=== PATIENT | male | born 1955 | race Caucasian/White ===

== ENCOUNTER 2017-12-29 22:29 | Inpatient (IN) | payer BC, SELFPAY ==
[2017-12-29 23:06] VITALS: BP 137/82; PULSE 60; RESP 18; TEMP 37; O2SAT 100
[2017-12-30] VITALS (18 sets, daily range): BP systolic 110–142; BP diastolic 63–90; PULSE 60–88; RESP 15–18; TEMP 36.1–37.1; O2SAT 89–100; BMI 29.6
--- NOTE | 2017-12-30 | DI.RAD.S_ITS ---
PROCEDURE: XR CHOLANGIOGRAM OPERATIVE INDICATIONS: LAP MANOHAR COMPARISON: [facility], US, US ABDOMEN COMPLETE, 12/30/2017, 2:29. FINDINGS: Biliary ducts: The surgeon injected contrast into the biliary ducts after cannulation of the cystic duct stump. Visualized intra- and extrahepatic bile ducts are normal in caliber, without strictures. No intraluminal filling defects to suggest retained ductal stones or sludge. No evidence for iatrogenic ductal injury. Duodenum: Contrast flows promptly through the sphincter of Oddi into the duodenum, which appears normal in caliber. IMPRESSION: Normal intraoperative cholangiogram. Dictated by: Jordon Apodaca M.D. on 12/30/2017 at 20:56 Approved by: Jordon Apodaca M.D. on 12/30/2017 at 20:57
--- NOTE | 2017-12-30 | PATH_ITS ---
[facility] Accession Number: [id number] . 01 Material submitted: . GALLBLADDER . 02 Diagnosis: Gallbladder: Cholelithiasis with associated acute and chronic cholecystitis. I/01/03/2018 . 02 Electronically signed: . Valentino Dumont MD, Pathologist NPI- [id number] . 01 Gross description: . Received in formalin, labeled gallbladder, is an opened gallbladder (length-9.4 cm, diameter-3.2 cm) with haddad-purple smooth and shiny serosa and a patent cystic duct. No lymph nodes are identified. The lumen contains multiple arriaga yellow solid firm round calculi (6.0 x 4.5 x 1.4 cm in aggregate, ranging less than 0.1 cm - 0.4 cm) mixed with brown paste-like material. The mucosa is brown smooth and flat. The wall is up to 0.4 cm thick. No nodules, masses or lesions are identified. Section code: (A1) cystic duct resection margin and two serial sections from the body; (A2) two longitudinal sections from the fundus. ([id number]) /[facility] . 02 Pathologist provided ICD-10: K80.66 . 02 CPT . 380333 Performed at: 01 [facility] [address], [place], [place] [id number] MD Tate Blevins MD Phone: [phone] Performed at: 02 [facility] [address] [place], [place] [id number] MD Rashad Aden MD Phone: [phone]
[2017-12-30] MEDS: SODIUM CHLORIDE 0.9% 1,000 ML 150 ML IV (01:00)
[2017-12-30 01:02] LABS: Add Manual Diff / Slide Review NO; Basophils Percent Auto 0.3 % (0-2); Eosinophils Percent Auto 0.2 % (2-4); Hematocrit 45.2 % (41-53); Hemoglobin 15.7 g/dL (13.5-17.5); Lymphocytes Percent Auto 8.8 % (25-40); Mean Corpuscular HGB Conc 34.7 % (30-36); Mean Corpuscular Hemoglobin 29.3 PG (26-34); Mean Corpuscular Volume 84.4 fL (80-100); Monocytes Percent Auto 5.7 % (3-14); Neutrophils Absolute Auto 4900 /uL (3000-5900); Platelet Count 164 X10^3/uL (150-400); Red Blood Cell Count 5.36 X10^6/uL (4.5-5.9); White Blood Cell Count 5.8 X10^3/uL (4.5-11.0)
[2017-12-30 01:05] LABS: Alanine Aminotransferase 408 IU/L (21-72); Albumin 4.4 g/dL (3.5-5.0); Albumin Globulin Ratio 1.5 (1.0-2.8); Alkaline Phosphatase 84 U/L (38-126); Aspartate Aminotransferase 448 IU/L (17-59); Blood Urea Nitrogen 14 mg/dL (9-20); Calcium 9.5 mg/dL (8.4-10.2); Carbon Dioxide 28 mmol/L (22-32); Chloride 105 mmol/L (98-107); Estimated Glomerular Filt Rate > 60.0 mL/min (>60); Globulin 2.9 g/dL (1.7-4.1); Glucose 136 mg/dL (80-110); HEMOLYSIS < 15 (0-50); Lipase 71 U/L (23-300); Sodium 143 mmol/L (137-145); Total Protein 7.3 g/dL (6.3-8.2)
[2017-12-30 01:37] LABS: INR 1.2 (0.9-1.3); Prothrombin Time 12.7 SECONDS (10.1-12.7)
[2017-12-30 01:41] LABS: Acetaminophen < 10 ug/mL (10-30)
--- NOTE | 2017-12-30 01:42 | DI.US.S_ITS ---
PROCEDURE: US ABDOMEN COMPLETE INDICATIONS: severe epigastric pain, elevated Bili/liver enzymes TECHNIQUE: Real-time scanning was performed of the abdominal and retroperitoneal organs, with image documentation. COMPARISON: None. FINDINGS: Liver: Liver is diffusely increased in echogenicity. No focal hepatic abnormalities identified. Normal hepatic size. Gallbladder: No gallstones identified. Normal gallbladder wall. No pericholecystic fluid. Negative sonographic Quigley sign. Biliary ducts: Intrahepatic bile ducts are non-dilated. Extrahepatic bile duct caliber measures 7 mm. Normal is 6-7 mm or less in diameter, or 10 mm or less post-cholecystectomy. Pancreas: Visualized portions of the pancreas are sonographically normal. Spleen: Spleen is normal in size and homogeneous in echotexture. Kidneys: Kidneys are normal in size and echotexture. Right kidney measures 12.4 cm long; left kidney measures 12.2 cm long. No hydronephrosis or nephrolithiasis. No solid masses. Aorta: Visualized aorta is normal in caliber at less than 3 cm. Iliacs: Not visualized. IVC: Not visualized. Miscellaneous: No free abdominal fluid. Impression: Increased hepatic echogenicity noted possibly related to hepatic steatosis but other sources of hepatocellular disease cannot be excluded. Recommend clinical correlation. Dictated by: Benigno LONG Interpreted: Jag Blackwell MD on 12/30/2017 at 7:53 Approved by: Jag Blackwell M.D. on 12/30/2017 at 14:50
--- NOTE | 2017-12-30 02:40 | ED_ITS ---
HPI - Abdominal Pain General Chief Complaint: Abdominal Pain Stated Complaint: abd px Time Seen by Provider: 12/30/17 01:24 Source: patient and family Mode of arrival: ambulatory Limitations: no limitations History of Present Illness HPI narrative: 62M nonsmoker presents with severe epigastric pain with nausea over the course of the day. This is his 2nd episode in the past 2 weeks and seems to have been precipitated by eating. He denies any radiation of the pain but associated with nausea. He has had no fever, chills or jaundice. He had an episode a few years ago at his primary care provider thought it might have been from a gallstone but took no further action. He last ate solids at about 5 :00 p.m. and had water at about 8:00 p.m.. He does not take blood thinners and denies any abdominal surgeries. 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 MD complaint: abdominal pain Onset (ago): hour(s) Pain Consistency: constant Location: RUQ and epigastric Severity: severe Quality: cramping and aching Radiation: none Migration to: no migration Relieving factors: nothing Exacerbating factors: nothing Associated symptoms: nausea Related Data Home Medications Medication Instructions Recorded Confirmed potassium chloride PO 12/14/17 12/14/17 vitamin B complex PO 12/14/17 12/14/17 Previous Rx's Medication Instructions Recorded omeprazole 40 mg capsule,delayed 40 mg PO DAILY 42 Days #90 cap 12/14/17 release Allergies Allergy/AdvReac Type Severity Reaction Status Date / Time No Known Drug Allergies Allergy Verified 12/14/17 14:36 Review of Systems Review of Systems All systems reviewed & are unremarkable except as noted in HPI and below Constitutional Denies chills, Denies fever(s), Denies lethargy and Denies weakness Eyes Denies change in vision, Denies eye discharge, Denies irritation and Denies loss of vision ENT Ears, Nose, Mouth, and Throat: Denies change in voice, Denies neck pain and Denies sore throat Cardiovascular Denies chest pain, Denies irregular heart rhythm, Denies lightheadedness, Denies palpitations, Denies dyspnea, Denies dyspnea on exertion and Denies orthopnea Respiratory Denies cough, Denies dyspnea, Denies dyspnea on exertion and Denies wheezing Gastrointestinal Gastrointestinal: Reports abdominal pain, Denies change in bowel habits, Denies diarrhea, Denies nausea and Denies vomiting Genitourinary Denies hematuria, Denies flank pain, Denies urinary incontinence and Denies urinary urgency Musculoskeletal Denies neck pain Integumentary/Breasts Denies pruritus, Denies erythema, Denies rash and Denies wounds Neurologic Denies confusion, Denies loss of vision and Denies weakness Psychiatric Denies anxiety, Denies confusion, Denies depression, Denies homicidal ideation and Denies suicidal ideation Endocrine Denies palpitations Hematologic/Lymphatic Denies easy bruising Allergic/Immunologic Denies wheezing [facility], [facility] Social History Smoking Status: Never smoker Exam Narrative Exam Narrative: 62-year-old male, obviously uncomfortable Initial Vital Signs Initial Vital Signs: Vital Signs Temperature 98.6 F 12/29/17 23:06 Pulse Rate 60 12/29/17 23:06 Respiratory Rate 18 12/29/17 23:06 Blood Pressure 137/82 12/29/17 23:06 Pulse Oximetry 100 12/29/17 23:06 Const General: cooperative and well developed Nutritional Appearance: well nourished Orientation: alert, awake, oriented x3 and not confused [facility] Head: normocephalic and atraumatic Ears: external ears normal and TM's normal bilaterally Nose: external nose normal and No nasal discharge Face and sinus: sinuses nontender, face symmetric, no sinus tenderness and No dry mucous membranes Mouth: oral mucosae normal and moist mucous membranes Teeth and gingiva: dentition normal Throat: tonsils normal and uvula midline Eyes General: appearance normal, both eyes and all related structures Eyelids: eyelids normal Conjunctivae: conjunctivae normal Sclera: sclerae normal Pupils: PERRL EOM: EOM intact bilaterally Neck Neck: normal visual inspection, trachea midline, No lymphadenopathy, No midline deformity and No JVD Lymphatic: No lymphedema Chest Chest: normal inspection of the chest Resp Effort & Inspection: normal respiratory effort, able to speak in complete sentences, no respiratory distress and no use of accessory muscles Auscultation: clear to auscultation bilaterally, no rales, no rhonchi and no wheezes Cardio Rate: regular rate Rhythm: regular rhythm Heart Sounds: no click, no gallops, no murmurs and no rubs Pulses: normal peripheral pulses GI Inspection: non-distended Palpation: soft, no hepatosplenomegaly, No guarding, No pulsatile mass and tender (In epigastrium and right upper quadrant) Auscultation: normal bowel sounds Back/Spine/Pelvis Back: No CVA tenderness Cervical Spine: cervical ROM normal and No pain with cervical ROM Thoracic/Lumbar Spine: thoracic and lumbar spine normal to inspection Skin General: no rashes or lesions noted, No jaundice and No petechiae Neuro General: alert, oriented x3, gait normal and no focal motor deficits Speech: speech normal Extrem General: full ROM, no clubbing, cyanosis or edema, no pedal edema and no calf tenderness Psych Appearance: well kempt Mental Status: mental status grossly normal Attitude: cooperative Thought Content: normal and suicidality Judgment: judgment good Course Decision to Admit Date: 12/30/17 Decision to Admit time: 01:39 Orders Ordered: ED Orders 12/30/17 00:23 Acetaminophen Stat Complete Blood Count AUTO DIFF Stat Comprehensive Metabolic Panel Stat Lipase Stat Prothrombin Time INR Stat 12/30/17 01:42 US abdomen complete Stat Sodium Chloride (Normal Saline 0.9%) 1,000 mls @ 150 mls/hr IV CONT FREDDIE Last Admin: 12/30/17 01:00 Dose: 150 mls/hr Discontinued Medications Hydromorphone HCl (Dilaudid) 1 mg IV NOW ONE Stop: 12/30/17 03:06 Cefotetan Disodium/Dextrose (Cefotan) 2 gm in 50 mls @ 100 mls/hr IV NOW ONE Stop: 12/30/17 03:16 Last Admin: 12/30/17 03:29 Dose: 100 mls/hr Consultations Consultation #1: Mo vaca, happy to accept patient onto his service. Recommends antibiotics, IV fluids Vital Signs - 8 hr 12/29/17 23:06 Temperature 98.6 F Pulse Rate 60 Respiratory Rate 18 Blood Pressure 137/82 Pulse Oximetry 100 MDM - Abdominal Pain Lab Data Result diagrams: 12/30/17 00:23 12/30/17 00:23 Lab Results 12/30/17 12/30/17 12/30/17 Range/Units 00:23 00:23 00:23 WBC 5.8 (4.5-11.0) X10^3/uL RBC 5.36 (4.5-5.9) X10^6/uL Hgb 15.7 (13.5-17.5) g/dL Hct 45.2 (41-53) % MCV 84.4 (80-100) fL MCH 29.3 (26-34) PG MCHC 34.7 (30-36) % RDW 14.0 (11.6-14.8) % Plt Count 164 (150-400) X10^3/uL Neut % (Auto) 85.0 H (50-75) % Lymph % (Auto) 8.8 L (25-40) % [place] % (Auto) 5.7 (3-14) % Eos % (Auto) 0.2 L (2-4) % Baso % (Auto) 0.3 (0-2) % Neut # (Auto) 4900 (6797-3698) /uL PT 12.7 (10.1-12.7) SECONDS INR 1.2 (0.9-1.3) Sodium 143 (137-145) mmol/L Potassium 4.0 (3.4-5.1) mmol/L Chloride 105 (98-107) mmol/L Carbon Dioxide 28 (22-32) mmol/L BUN 14 (9-20) mg/dL Creatinine 1.00 (0.66-1.25) mg/dL Estimated GFR > 60.0 (>60) mL/min BUN/Creatinine Ratio 14.0 (6-22) Glucose 136 H (80-110) mg/dL Calcium 9.5 (8.4-10.2) mg/dL Total Bilirubin 4.0 H (0.2-1.3) mg/dL AST 448 H (17-59) IU/L ALT 408 H (21-72) IU/L Alkaline Phosphatase 84 (38-126) U/L Total Protein 7.3 (6.3-8.2) g/dL Albumin 4.4 (3.5-5.0) g/dL Globulin 2.9 (1.7-4.1) g/dL Albumin/Globulin Ratio 1.5 (1.0-2.8) Lipase 71 (23-300) U/L Acetaminophen (10-30) ug/mL 12/30/17 Range/Units 00:23 WBC (4.5-11.0) X10^3/uL RBC (4.5-5.9) X10^6/uL Hgb (13.5-17.5) g/dL Hct (41-53) % MCV (80-100) fL MCH (26-34) PG MCHC (30-36) % RDW (11.6-14.8) % Plt Count (150-400) X10^3/uL Neut % (Auto) (50-75) % Lymph % (Auto) (25-40) % [place] % (Auto) (3-14) % Eos % (Auto) (2-4) % Baso % (Auto) (0-2) % Neut # (Auto) (6189-8602) /uL PT (10.1-12.7) SECONDS INR (0.9-1.3) Sodium (137-145) mmol/L Potassium (3.4-5.1) mmol/L Chloride (98-107) mmol/L Carbon Dioxide (22-32) mmol/L BUN (9-20) mg/dL Creatinine (0.66-1.25) mg/dL Estimated GFR (>60) mL/min BUN/Creatinine Ratio (6-22) Glucose (80-110) mg/dL Calcium (8.4-10.2) mg/dL Total Bilirubin (0.2-1.3) mg/dL AST (17-59) IU/L ALT (21-72) IU/L Alkaline Phosphatase (38-126) U/L Total Protein (6.3-8.2) g/dL Albumin (3.5-5.0) g/dL Globulin (1.7-4.1) g/dL Albumin/Globulin Ratio (1.0-2.8) Lipase (23-300) U/L Acetaminophen < 10 L (10-30) ug/mL Imaging Data US - abdomen: Radiologist's impression: Most compatible with acute cholecystitis with multiple gallstones, gallbladder sludge. Abnormally thickened, edematous gallbladder wall and positive sonographic Quigley sign. Normal common bile duct for a chest 7 mm. No intrahepatic biliary duct dilatation Discharge Plan Departure Patient Disposition: Admitted As Inpatient Clinical Impression: Acute calculous cholecystitis Admit Date/Time: 12/30/17 03:00 Admit Provider: Danielito Hassan
[2017-12-30] MEDS: HYDROMORPHONE 1 MG INJ IV (03:05)
[2017-12-30] MEDS: CEFOTETAN 2 GM/50 ML PIGGYBACK IV ×2 (03:29→19:24)
[2017-12-30] MEDS: LACTATED RINGERS 1,000 ML 150 ML IV ×2 (03:48→10:54)
[2017-12-30] MEDS: HYDROMORPHONE PCA 6 MG/30 ML PCA.VIAL IV ×2 (06:38→15:38)
[2017-12-30 07:14] LABS: Add Manual Diff / Slide Review NO; Basophils Percent Auto 0.2 % (0-2); Eosinophils Percent Auto 0.3 % (2-4); Hemoglobin 15.1 g/dL (13.5-17.5); Lymphocytes Percent Auto 19.1 % (25-40); Mean Corpuscular HGB Conc 34.3 % (30-36); Mean Corpuscular Volume 84.3 fL (80-100); Monocytes Percent Auto 7.5 % (3-14); Neutrophils Absolute Auto 4800 /uL (3000-5900); Neutrophils Percent Auto 72.9 % (50-75); Platelet Count 165 X10^3/uL (150-400); Red Blood Cell Count 5.21 X10^6/uL (4.5-5.9); Red Cell Distribution Width 14.1 % (11.6-14.8); White Blood Cell Count 6.6 X10^3/uL (4.5-11.0)
[2017-12-30 07:29] LABS: Alanine Aminotransferase 380 IU/L (21-72); Albumin Globulin Ratio 1.5 (1.0-2.8); Alkaline Phosphatase 75 U/L (38-126); Aspartate Aminotransferase 298 IU/L (17-59); Bilirubin Total 1.5 mg/dL (0.2-1.3); Blood Urea Nitrogen 12 mg/dL (9-20); Carbon Dioxide 27 mmol/L (22-32); Chloride 106 mmol/L (98-107); Estimated Glomerular Filt Rate > 60.0 mL/min (>60); Globulin 2.6 g/dL (1.7-4.1); Glucose 103 mg/dL (80-110); HEMOLYSIS < 15 (0-50); Sodium 144 mmol/L (137-145); Total Protein 6.6 g/dL (6.3-8.2)
--- NOTE | 2017-12-30 12:04 | PC.NURSE ---
Day Shift- Pt A&OX4, able to make needs known. NPO awaiting surgery today. Dr. Hassan in to see pt at 0750. IVF infusing well to left AC PIV, CLINICAL PRODUCT MANAGER Dilaudid in place, pt states has minimal to no pain to abd. Abd non tender, denies nausea. States feeling slightly anxious regarding surgery today, support provided. No other voiced concerns.
--- NOTE | 2017-12-30 14:07 | P.HP_ITS ---
History of Present Illness Date Patient Seen: 12/30/17 Time Patient Seen: 14:01 Chief complaint: abd px Narrative: Patient is a gentleman who is been having intermittent occasional pain in his right upper quadrant. Last night it was quite severe he came to emergency room and was found to have gallstones. He has actually seen a doctor about this when he has had it but he has been treated for reflux and a few other problems and no one really ever did an ultrasound of his gallbladder. This episode was the most severe of them all. No history of jaundice. Patient History Family & Social History Family History: Reviewed 12/30/17 by Danielito Hassan MD Social History: household members none Prior Living Arrangements Apartment/Condo Safety & Behavioral: Feels Safe in Current Yes Environment Been Physically Hurt or No Threatened By a Person Suicidal Ideation Description None Suicide Plan Description No Plan Tobacco & Substance use: Smoking Status Never smoker alcohol intake former Substance Use Type marijuana Meds Home Medications Medication Instructions Recorded Confirmed Type omeprazole 40 mg capsule,delayed 40 mg PO DAILY 42 Days #90 cap 12/14/17 Rx release potassium chloride PO DAILY 12/14/17 12/14/17 History vitamin B complex PO 12/14/17 12/14/17 History Allergies Allergy/AdvReac Type Severity Reaction Status Date / Time No Known Drug Allergies Allergy Verified 12/14/17 14:36 Review of Systems Review of Systems Patient wears glasses. Denies double vision pain is eyes earaches or sore throat. No cough cold or asthma. No problems swallowing. No tooth aches. No hearing difficulties. No chest pain. He was recently placed on omeprazole because the right upper quadrant pain but it had no affect. He was not having heartburn. Patient denies hematemesis black or bloody bowel movements. Last colonoscopy 10 years ago.(advised he probably should have a screening exam repeated.) Patient does not normally get up at night to pee unless he has not urinated before going to bed. He has no blood in his urine or kidney stones in the past. No seizures or blackouts. No anxiety or depression. No problems with this thyroid pancreas he is aware of. Exam Vital Signs (past 8 hours): - 12/30/17 07:45 Temperature 98.1 F Pulse Rate 76 Respiratory Rate 16 Blood Pressure 142/79 H Pulse Oximetry 97 Oxygen Delivery Method Room Air Oxygen Flow Rate 0 Narrative Exam Narrative: Co operative heavily bearded gentleman in no apparent distress. His eyes are nonicteric. Pupils equal round reactive to light. Conjunctivae are pink. Oral mucosa is dry no open lesions teeth are intact. Nasal septum is midline. No polyps. No nodes in the neck or supraclavicular areas. Trachea is midline mobile. Thyroid is not enlarged. There are no masses in neck or thyroid. Lungs are clear to auscultation without rales or rhonchi. Heart regular rate and rhythm without murmur or gallop. No heave surgical services manager thrill. Lungs percuss equally bilaterally. Patient's abdomen is soft nontender at this time. He may have a very tiny umbilical defect difficult to tell. Is not tender. No enlargement of the liver spleen is apparent. He is alert and oriented x3. Speech rate content are appropriate. Affect is appropriate. Objective Labs Result Diagrams: 12/30/17 07:00 12/30/17 07:00 Labs: Laboratory Results - last 24 hr 12/30/17 12/30/17 12/30/17 00:23 00:23 00:23 WBC 5.8 RBC 5.36 Hgb 15.7 Hct 45.2 MCV 84.4 MCH 29.3 MCHC 34.7 RDW 14.0 Plt Count 164 Neut % (Auto) 85.0 H Lymph % (Auto) 8.8 L [place] % (Auto) 5.7 Eos % (Auto) 0.2 L Baso % (Auto) 0.3 Neut # (Auto) 4900 PT 12.7 INR 1.2 Sodium 143 Potassium 4.0 Chloride 105 Carbon Dioxide 28 BUN 14 Creatinine 1.00 Estimated GFR > 60.0 BUN/Creatinine Ratio 14.0 Glucose 136 H Calcium 9.5 Total Bilirubin 4.0 H AST 448 H ALT 408 H Alkaline Phosphatase 84 Total Protein 7.3 Albumin 4.4 Globulin 2.9 Albumin/Globulin Ratio 1.5 Lipase 71 Acetaminophen 12/30/17 12/30/17 12/30/17 00:23 07:00 07:00 WBC 6.6 RBC 5.21 Hgb 15.1 Hct 44.0 MCV 84.3 MCH 29.0 MCHC 34.3 RDW 14.1 Plt Count 165 Neut % (Auto) 72.9 Lymph % (Auto) 19.1 L [place] % (Auto) 7.5 Eos % (Auto) 0.3 L Baso % (Auto) 0.2 Neut # (Auto) 4800 PT INR Sodium 144 Potassium 4.0 Chloride 106 Carbon Dioxide 27 BUN 12 Creatinine 1.00 Estimated GFR > 60.0 BUN/Creatinine Ratio 12.0 Glucose 103 Calcium 9.0 Total Bilirubin 1.5 H AST 298 H ALT 380 H Alkaline Phosphatase 75 Total Protein 6.6 Albumin 4.0 Globulin 2.6 Albumin/Globulin Ratio 1.5 Lipase Acetaminophen < 10 L Assessment & Plan Plan: Assessment/Plan Narrative: Patient is a gentleman with the ultrasound showing gallstones but no dilated ducts. His bilirubin was elevated but is come down to near normal overnight. Will proceed to the operating room to remove his gallbladder injected I into the ducts if possible. Risks of bleeding, infection, hernia, injury to internal organs or ducts, bile leakage all discussed with the patient. He appears to understand and wishes to proceed. I talked to him about postoperative ERCP should he have a stones doctor be instructed worse or he developed a bile leak.
--- NOTE | 2017-12-30 14:07 | PM.PREOP ---
Pre-operative Note Interval Note Pre-op Check: Yes History & Physical exam performed today by Physician Changes: No
--- NOTE | 2017-12-30 17:16 | PC.NURSE ---
Kanika shift note: Patient awake and alert, pain controlled adequately with SWITCHING CLERK Dilaudid. Up ambulating in room and voiding. Abdomen soft, non tender, non distended, active BS. Florian RN at bedside preparing patient for Pre OP. Patient NPO for 23 hours.
[2017-12-30] MEDS: LACTATED RINGERS 1,000 ML 42 ML IV (18:41)
[2017-12-30] MEDS: BUPIVACAINE 0.5% (PF) VIAL 30 ML INJ (19:42)
[2017-12-30] MEDS: IOPAMIDOL 50 ML VIAL INJ (20:28)
--- NOTE | 2017-12-30 21:45 | PM.OP.1 ---
Operative Date/Time/Diagnoses Date of procedure: 12/30/17 Time of procedure: 21:29 Pre-op diagnosis: Cholelithiasis cholecystitis acute Post-op diagnosis: same (Acute and chronic cholecystitis with cholelithiasis) Procedure & Clinicians Procedure: Laparoscopic cholecystectomy with intraoperative cholangiogram Same procedure as scheduled: Yes Indications: Right upper quadrant pain elevated bilirubin and LFTs Surgeon: Danielito Hassan Click Yes if Unassisted: Yes Anesthesia Type: General Operative Notes Findings: Very thickened gallbladder wall. Normal caliber ductal system. No filling defects and free flow into the duodenum. Closure Type: primary Specimen(s): other (Gallbladder and contents) Implants & Drains: None Estimated Blood Loss (mL): 200 Blood products transfused: none Procedure in detail: The patient was placed supine on the operating room table and underwent general endotracheal anesthesia. He was prepped and draped in the usual fashion. Local anesthetic was infiltrated beneath the umbilicus and an incision made in the infraumbilical fold. It was carried down to the level of the peritoneum which was opened under direct vision. The patient had umbilical hernia and the fascial edge was cleared. Stay sutures of 0 Ethibond were placed in the fascia. And naveen cannula was inserted and the abdomen was insufflated. The patient was repositioned and local anesthetic was infiltrated again beneath the right costal margin and 3 small 5 mm ports were inserted. The gallbladder was identified and grasped and elevated. I could not apply a 2nd can clamp so I aspirated about 60 cc of dark green fluid. The end of the gallbladder was cleared of adhesions and grasped. Dissection was begun near the end. There were numerous structures going to the gallbladder at this level. Some of these were probably just scar. Others may have been lymphatic or venous. I chose to clip anything that I thought might bleed that was going to the gallbladder itself. The cystic artery was identified and had multiple branches in each of these had clips placed across it and the branches divided leaving 2 on each branch. A clip was placed at the junction of the cystic duct to the gallbladder as small bisi was made in the cystic duct intentionally. The cholangiocatheter was inserted into this opening and a cholangiogram performed. There was a small amount of leakage of dye seen on the cholangiogram at the insertion site but the ductal structures all were intact and appeared to be normal caliber with free flow into the duodenum and no filling defects appreciated. The cholangiocatheter was removed and 3 clips were placed on the duct and was divided leaving all 3 in the patient. The gallbladder was then dissected from its bed in the liver using cautery. There was some oozing from vessels in the bed which was controlled with cautery. The gallbladder was ultimately detached placed in a bag and removed through the umbilical port. The wall was quite thick. The right upper quadrant irrigated and suctioned free of fluid. I had made sure there was no further bleeding from the gallbladder bed before removing all the ports. The stay sutures at the umbilicus were tied and 2 additional were placed because I had open the fascia further to get this thickened gallbladder out through that port. The wounds were all irrigated. Four 0 Vicryl subcuticular stitches was used to close the skin in all areas. Steri-Strips were applied and the patient was awakened extubated and taken recovery room good condition. Complications: none Condition: stable Disposition: PACU Plan for aftercare: Bring in outpatient with bed status probable discharge in a.m.
[2017-12-30] MEDS: MEPERIDINE 50 MG/ML 25 MG IV (22:08)
--- NOTE | 2017-12-30 22:13 | SUR.PHASEI ---
Mild shivering addressed with a dose of Meperidine 25mg IVP. One attempt to start IV to replace AC IV abandoned after unable to completelypass intracath.
--- NOTE | 2017-12-30 23:15 | PC.NURSE ---
Kanika shift note: Patient returned from PACU to Room 216 in stable condition. VSS and afebrile. Remain on RA, sat 94%. Abdomen distended, tender, with Large brown bandaids x 4, CDI. No nausea or vomiting. SCDs in place. Report given to Linda GROVER.
[2017-12-31] VITALS (7 sets, daily range): BP systolic 111–141; BP diastolic 67–79; PULSE 59–84; RESP 16–18; TEMP 36.2–37.1; O2SAT 93–96
[2017-12-31] MEDS: MORPHINE 4 MG/ML INJ IV ×2 (00:10→06:20)
[2017-12-31] MEDS: DEXTROSE 5%-0.45% NS 1,000 ML 125 ML IV ×3 (00:17→17:38)
[2017-12-31] MEDS: OXYCODONE/ACETAMINOPHEN 5/325 TABLET 2 TAB PO ×4 (02:30→20:53)
[2017-12-31] MEDS: CEFOTETAN 2 GM/50 ML PIGGYBACK IV ×2 (02:32→14:41)
[2017-12-31 06:32] LABS: Add Manual Diff / Slide Review NO; Basophils Percent Auto 0.1 % (0-2); Hematocrit 42.9 % (41-53); Hemoglobin 14.9 g/dL (13.5-17.5); Lymphocytes Percent Auto 7.4 % (25-40); Mean Corpuscular HGB Conc 34.7 % (30-36); Mean Corpuscular Hemoglobin 29.1 PG (26-34); Mean Corpuscular Volume 84.1 fL (80-100); Monocytes Percent Auto 4.8 % (3-14); Neutrophils Absolute Auto 6200 /uL (3000-5900); Neutrophils Percent Auto 87.7 % (50-75); Platelet Count 158 X10^3/uL (150-400); Red Cell Distribution Width 14.3 % (11.6-14.8)
[2017-12-31 06:37] LABS: Alanine Aminotransferase 276 IU/L (21-72); Albumin 3.8 g/dL (3.5-5.0); Albumin Globulin Ratio 1.5 (1.0-2.8); Alkaline Phosphatase 75 U/L (38-126); Aspartate Aminotransferase 120 IU/L (17-59); BUN Creatinine Ratio 13.3 (6-22); Bilirubin Total 0.8 mg/dL (0.2-1.3); Blood Urea Nitrogen 12 mg/dL (9-20); Calcium 8.7 mg/dL (8.4-10.2); Carbon Dioxide 25 mmol/L (22-32); Chloride 107 mmol/L (98-107); Estimated Glomerular Filt Rate > 60.0 mL/min (>60); Globulin 2.6 g/dL (1.7-4.1); Glucose 166 mg/dL (80-110); HEMOLYSIS < 15 (0-50); Sodium 140 mmol/L (137-145); Total Protein 6.4 g/dL (6.3-8.2)
--- NOTE | 2017-12-31 08:40 | CM.DANOTE ---
Addendum entered by Karie Lowry LPN 12/31/17 08:43: Check in this morning shows that pt did go to surgery 0 last evening for a Lap Leia/IOC. He is back in same room. Appears comfortable. Will follow prn Original Note: Discharge Planning/Care Management DCP: assessment: Late entry for 12/30 0845: Case received and met with pt. Introduced self and role. Pt is a 62 year old male who admitted guest services manager of 12/30: 0300 to care of general surgery: Dr. Hassan. At time of this meeting pt was waiting to hear from Dr. Hassan what the POC would be. Agreed to check in prn to assist with any d/c needs that may arise. CM Discharge Assessment Start: 12/31/17 08:37 Freq: Status: Active Protocol: Document 12/31/17 08:37 ITV (Rec: 12/31/17 08:39 ITV [id number]) Discharge Planning Assessment Advance Directives? No History Provided By Patient Medical Record Prior Living Arrangements Apartment/Condo Household Members none Type of transporation used prior to Drives own vehicle admit Comment drove here. will have a coworker pick him up at d/c. Independent with ADL's Yes Is patient alert and oriented? Yes Barriers to Discharge No Comment non identified at this time. Whiteboard Updated in Patient Room with Yes name and ext. # of Care Specialist Review Status In Process Next Review Type Continued Stay Review
[2017-12-31] MEDS: ENOXAPARIN 40 MG/0.4 ML SYRINGE SUBCUT (09:06)
[2017-12-31] MEDS: GABAPENTIN 300 MG CAPSULE PO ×2 (09:06→20:53)
--- NOTE | 2017-12-31 09:57 | PC.NURSE ---
AM NOTE - alert, states abd discomfort 7 on scale 0/10, discussed medications and percocet has worked well in past, given 5/325mg x 2 tabs with breakfast, has pillow for splinting for occass cough,denies nausea, no flatus yet, bt are active, abd mildly distended, discussed mobilization after meds and meal this am, ra 94%, hr 66.
--- NOTE | 2017-12-31 17:43 | PM.PN.1 ---
Subjective Date Patient Seen: 12/31/17 Time Patient Seen: 09:43 Interval history: Darnell is in reasonable spirits today. He reports his pain is still present and he does not feel well but he does not feel just terrible. He has eaten only liquids so far this morning. He has not walked but is sitting in a bedside chair. He reports that he lives alone and is a little bit concerned about going home by himself because he still feels quite weak. Exam Vital Signs (past 8 hours): - 12/31/17 14:00 12/31/17 15:25 Temperature 98 F 98.7 F Pulse Rate 64 66 Respiratory Rate 16 18 Blood Pressure 113/72 111/69 Pulse Oximetry 96 96 Oxygen Delivery Method Room Air Oxygen Flow Rate 2 Narrative Exam Narrative: Abdomen is soft, appropriately tender, active bowel sounds. Wounds are clean and dry and Band-Aids are in place. Objective Labs Result Diagrams: 12/31/17 06:09 12/31/17 06:09 Labs: Laboratory Results - last 24 hr 12/31/17 12/31/17 06:09 06:09 WBC 7.0 RBC 5.10 Hgb 14.9 Hct 42.9 MCV 84.1 MCH 29.1 MCHC 34.7 RDW 14.3 Plt Count 158 Neut % (Auto) 87.7 H Lymph % (Auto) 7.4 L [place] % (Auto) 4.8 Eos % (Auto) 0.0 L Baso % (Auto) 0.1 Neut # (Auto) 6200 H Sodium 140 Potassium 4.0 Chloride 107 Carbon Dioxide 25 BUN 12 Creatinine 0.90 Estimated GFR > 60.0 BUN/Creatinine Ratio 13.3 Glucose 166 H Calcium 8.7 Total Bilirubin 0.8 AST 120 H ALT 276 H Alkaline Phosphatase 75 Total Protein 6.4 Albumin 3.8 Globulin 2.6 Albumin/Globulin Ratio 1.5 Assessment & Plan Plan: Assessment/Plan Narrative: Pleasant 62-year-old gentleman who is postop day 1 after laparoscopic cholecystectomy and intraoperative cholangiogram for acalculous cholecystitis. I am going to encourage him to ambulate in the halls and take only his oral pain medicine today. As long as he does well over the evening, we will plan to discharge him in the morning.
[2018-01-01 00:15] VITALS: BP 110/71; PULSE 64; RESP 18; TEMP 36.6; O2SAT 94
[2018-01-01] MEDS: DEXTROSE 5%-0.45% NS 1,000 ML 125 ML IV ×2 (00:20→08:49)
[2018-01-01] MEDS: OXYCODONE/ACETAMINOPHEN 5/325 TABLET 2 TAB PO ×3 (02:43→15:43)
[2018-01-01] MEDS: CEFOTETAN 2 GM/50 ML PIGGYBACK IV ×2 (02:43→13:35)
[2018-01-01 02:50] VITALS: BP 123/74; PULSE 57; RESP 16; TEMP 36.7; O2SAT 95
[2018-01-01 08:00] VITALS: BP 122/77; PULSE 58; RESP 18; TEMP 36.6; O2SAT 95
[2018-01-01] MEDS: GABAPENTIN 300 MG CAPSULE PO (08:53)
[2018-01-01] MEDS: ENOXAPARIN 40 MG/0.4 ML SYRINGE SUBCUT (08:53)
--- NOTE | 2018-01-01 11:41 | PC.NURSE ---
AM NOTE - sitting upright in bed, david gen diet, denies nausea, incisional discomfort about same 4 on scale 0/10, abd slightly distended, soft, + BT and flatus, ra 94%, enc oob, ambul later am, given percocet po x2 with breakfast.
[2018-01-01 11:46] VITALS: BP 120/74; PULSE 60; RESP 18; TEMP 36.6; O2SAT 95
--- NOTE | 2018-01-01 14:51 | PM.PN.1 ---
Subjective Date Patient Seen: 01/01/18 Time Patient Seen: 14:51 Interval history: Darnell reports he is feeling much better today than yesterday. He is much more comfortable with the concept of taking care of himself at home. He reports his pain is well controlled and he has been passing flatus. Tolerating a diet though not eating much. Exam Vital Signs (past 8 hours): - 01/01/18 08:00 01/01/18 11:46 Temperature 97.8 F 98 F Pulse Rate 58 L 60 Respiratory Rate 18 18 Blood Pressure 122/77 120/74 Pulse Oximetry 95 95 Oxygen Delivery Method Room Air Oxygen Flow Rate 0 Narrative Exam Narrative: Abdomen is soft with active bowel sounds. Incisions are clean and dry and without erythema. Minimal bruising. Objective Labs Result Diagrams: 12/31/17 06:09 12/31/17 06:09 Assessment & Plan Plan: Assessment/Plan Narrative: Very pleasant gentleman who is recovering nicely from laparoscopic cholecystectomy for acute cholecystitis. He is discharged to his home. Prescriptions are written. He will follow up with Dr. Hassan as ordered.
[2018-01-01 15:35] VITALS: BP 119/67; PULSE 89; RESP 16; TEMP 36.8; O2SAT 97
--- NOTE | 2018-01-02 08:19 | CM.DPC ---
DCP Discharge Home Per Surgeon, pt was medically stable to d/c home yesterday (01/01/18) with no identified barriers to discharge. Plan: Patient discharged home last night via family POV after DCP shift ended. No needs at this time. CONNIE Allen
--- NOTE | 2018-01-10 13:45 | PM.DS.1 ---
History of Present Illness Date Patient Seen: 01/10/18 Time Patient Seen: 13:46 Chief complaint: abd px Narrative: Pleasant 62 year old gentleman who presented to the ED on the date of admission with complaint of abdominal pain. He was seen and evaluated and determined to be suffering from acute cholecystitis. Discharge Providers Date of admission: 12/30/17 03:00 Consults: 12/30/17 22:26 Consult to Discharge Planning Routine Comment: Discharge provider: Barb Talley MD Summary Discharge Diagnosis: Acute cholecystitis and cholelithiasis Hospital Course: Dr. Hassan saw him in the ED and brought him to the operating room shortly thereafter for laparoscopic cholecystectomy. His post operative course was uncomplicated. At the time of discharge, he is tolerating a regular diet and pain is well controlled with oral medications. He is discharged to the care of himself and his friends and family. He will follow up with Dr. Hassan in 2 weeks. Status at Discharge Cognitive/behavioral status at discharge: Nupur Functional status at discharge: independent ambulation Overall status at discharge: patient is progressing back to baseline Time Spent with Patient Less than 30 minutes Exam Vital Signs (past 8 hours): Oxygen Delivery Method Room Air Oxygen Flow Rate 0 Objective Labs Result Diagrams: 12/31/17 06:09 12/31/17 06:09 Discharge Plan Discharge Plan Patient Disposition: Home Discharge comment: You had a very thickened gallbladder with stones. It was quite sick looking. Discharge Med Rec/Prescriptions Prescriptions: Continue omeprazole 40 mg capsule,delayed release(DR/EC) 40 mg PO DAILY 42 Days Qty: 90 RF: 0 No Action potassium chloride PO DAILY RF: 0 vitamin B complex PO RF: 0 oxycodone-acetaminophen [Percocet] 5-325 mg tablet 2 tab PO Q4-6H PRN (Reason: painful procedure) Qty: 14 RF: 0 Follow up/Referrals: Danielito Hassan MD [Physician] - (If you were not scheduled for an appointment call our office and ask for an appointment to see Dr. Hassan in about 10-14 days. If you need to reach doctor network operations lead call the office and hold until the page in underground bolting machine operator picks up) Provider Discharge Instructions Diet: Diet as Tolerated Activity: Do not lift over 10 lb or strain for 4 weeks. Avoid tub or pool for at least [address] until your pain free off medication. Skin/Wound/Dressing Care Report to your healthcare provider any signs of infection, such as:: chills, fever, night sweats, increased pain and unusual drainage Dressing: You may remove her Band-Aids on Wednesday and shower. Visit Report/Discharge Packet Instructions: Cholecystectomy -- Laparoscopic Surgery Visit Report Forms: Stroke Signs & Symptoms Discharge Data Attending Provider: Danielito Hassan Admit Date/Time: 12/30/17 03:00 Discharges patient from system. Discharge Date/Time: 01/01/18 17:01
--- NOTE | 2018-01-10 13:50 | P.DS_ITS ---
History of Present Illness Date Patient Seen: 01/10/18 Time Patient Seen: 13:46 Chief complaint: abd px Narrative: Pleasant 62 year old gentleman who presented to the ED on the date of admission with complaint of abdominal pain. He was seen and evaluated and determined to be suffering from acute cholecystitis. Discharge Providers Date of admission: 12/30/17 03:00 Consults: 12/30/17 22:26 Consult to Discharge Planning Routine Comment: Discharge provider: Barb Talley MD Summary Discharge Diagnosis: Acute cholecystitis and cholelithiasis Hospital Course: Dr. Hassan saw him in the ED and brought him to the operating room shortly thereafter for laparoscopic cholecystectomy. His post operative course was uncomplicated. At the time of discharge, he is tolerating a regular diet and pain is well controlled with oral medications. He is discharged to the care of himself and his friends and family. He will follow up with Dr. Hassan in 2 weeks. Status at Discharge Cognitive/behavioral status at discharge: Nupur Functional status at discharge: independent ambulation Overall status at discharge: patient is progressing back to baseline Time Spent with Patient Less than 30 minutes Exam Vital Signs (past 8 hours): Oxygen Delivery Method Room Air Oxygen Flow Rate 0 Objective Labs Result Diagrams: 12/31/17 06:09 12/31/17 06:09 Discharge Plan Discharge Plan Patient Disposition: Home Discharge comment: You had a very thickened gallbladder with stones. It was quite sick looking. Discharge Med Rec/Prescriptions Prescriptions: Continue omeprazole 40 mg capsule,delayed release(DR/EC) 40 mg PO DAILY 42 Days Qty: 90 RF: 0 No Action potassium chloride PO DAILY RF: 0 vitamin B complex PO RF: 0 oxycodone-acetaminophen [Percocet] 5-325 mg tablet 2 tab PO Q4-6H PRN (Reason: painful procedure) Qty: 14 RF: 0 Follow up/Referrals: Danielito Hassan MD [Physician] - (If you were not scheduled for an appointment call our office and ask for an appointment to see Dr. Hassan in about 10-14 days. If you need to reach doctor business applications specialist call the office and hold until the page in page makeup system operator picks up) Provider Discharge Instructions Diet: Diet as Tolerated Activity: Do not lift over 10 lb or strain for 4 weeks. Avoid tub or pool for at least [address] until your pain free off medication. Skin/Wound/Dressing Care Report to your healthcare provider any signs of infection, such as:: chills, fever, night sweats, increased pain and unusual drainage Dressing: You may remove her Band-Aids on Wednesday and shower. Visit Report/Discharge Packet Instructions: Cholecystectomy -- Laparoscopic Surgery Visit Report Forms: Stroke Signs & Symptoms Discharge Data Attending Provider: Danielito Hassan Admit Date/Time: 12/30/17 03:00 Discharges patient from system. Discharge Date/Time: 01/01/18 17:01
== END 2018-01-01 17:01 | disposition home or self-care (01) | DRG 419 ==
LOC: ED 12-30 02:40 → AC 12-30 03:01
PROVIDERS: Admitting Provider Specialist; Emergency Provider Emergency Medicine; Visit Provider Specialist
PROC: 0FT44ZZ Resection of Gallbladder, Percutaneous Endoscopic Approach (ICD-10-PCS; CPT 47562; principal; 2017-12-30 19:00)
DX: K80.00 Calculus of gallbladder with acute cholecystitis without obstruction (principal)
CPT/HCPCS: 36415; 36591; 47563; 74300; 76700; 80053; 80329; 83690; 85025; 85610; 94760; 96374; 99222; 99283; 99284; G0480; J0330; J1100; J1170; J1650; J2175; J2270; J2405; J2704; J3010

== ENCOUNTER → 2019-03-10 16:40 | Outpatient (CLI) | payer BC, SELFPAY ==
[2018-01-03 14:09] VITALS: BMI 29.6
== END ==
PROVIDERS: PCP Nurse Practitioner Family; Visit Provider Orthopaedic Surgery Adult Reconstructive Orthopaedic Surgery
DX: Z01.818 Encounter for other preprocedural examination (principal); Z01.812 Encounter for preprocedural laboratory examination
CPT/HCPCS: 93005

== ENCOUNTER 2019-09-28 12:56 | Emergency (ER) | payer BC, SELFPAY ==
[2018-01-03 14:09] VITALS: BMI 29.6
[2019-09-28 13:08] VITALS: BP 132/87; PULSE 82; RESP 16; TEMP 36.4; O2SAT 97; BMI 30.8
--- NOTE | 2019-09-28 13:15 | DI.RAD.S_ITS ---
PROCEDURE: XR CHEST 1V INDICATIONS: fatigue, dizzy TECHNIQUE: One view of the chest was acquired. COMPARISON: None. FINDINGS: Surgical changes and devices: None. Lungs and pleura: Mild opacity at the right lung base. Moderate right pleural effusion. No pneumothorax. Mediastinum: Mediastinal contours appear normal. Heart size is normal. Bones and chest wall: No suspicious bony lesions. Overlying soft tissues appear unremarkable. IMPRESSION: 1. Moderate right pleural effusion. 2. Mild opacity at the right lung base most likely represents atelectasis. Pneumonia or aspiration could have a similar appearance. Dictated by: Nuno Michaud M.D. on 09/28/2019 at 14:01 Approved by: Nuno Michaud M.D. on 09/28/2019 at 14:02
--- NOTE | 2019-09-28 13:22 | DI.CT.S_ITS ---
PROCEDURE: CT HEAD/BRAIN WO CON INDICATIONS: dizzy TECHNIQUE: Noncontrast 4.5 mm thick angled axial sections acquired from the foramen magnum to the vertex, with coronal and sagittal reformats. For radiation dose reduction, the following was used: automated exposure control, adjustment of mA and/or kV according to patient size. COMPARISON: None. FINDINGS: Image quality: Excellent. CSF spaces: Basal cisterns are patent. No extra-axial fluid collections. Ventricles are normal in size and shape. Brain: No midline shift. No intracranial masses or hemorrhage. Hall-white matter interface is normal. Skull and face: Calvarium and visualized facial bones are intact, without suspicious lesions. Sinuses: Visualized sinuses and mastoids are clear. IMPRESSION: Negative head CT. No acute intracranial hemorrhage. Dictated by: Geovanny Gamez M.D. on 09/28/2019 at 12:43 Approved by: Geovanny Gamez M.D. on 09/28/2019 at 12:44
[2019-09-28 13:49] LABS: Add Manual Diff / Slide Review NO; Basophils Absolute Auto 0 /uL (0-100); Basophils Percent Auto 0.6 % (0-2); Eosinophils Absolute Auto 100 /uL (0-450); Eosinophils Percent Auto 0.9 % (2-4); Hematocrit 43.3 % (41-53); Hemoglobin 14.8 g/dL (13.5-17.5); Lymphocytes Absolute Auto 1100 /uL (1100-4500); Lymphocytes Percent Auto 17.1 % (25-40); Mean Corpuscular HGB Conc 34.2 % (30-36); Mean Corpuscular Hemoglobin 28.1 PG (26-34); Monocytes Absolute Auto 400 /uL (0-900); Monocytes Percent Auto 6.3 % (3-14); Neutrophils Absolute Auto 4800 /uL (1500-7000); Neutrophils Percent Auto 75.1 % (50-75); Platelet Count 181 X10^3/uL (150-400); Red Blood Cell Count 5.27 X10^6/uL (4.5-5.9); Red Cell Distribution Width 14.8 % (11.6-14.8); White Blood Cell Count 6.4 X10^3/uL (4.5-11.0)
[2019-09-28] MEDS: SODIUM CHLORIDE 0.9% 1,000 ML 1000 ML IV ×2 (13:50→15:41)
[2019-09-28 13:56] LABS: INR 1.1 (0.9-1.3); Prothrombin Time 12.2 SECONDS (10.1-12.7)
[2019-09-28 14:00] VITALS: BP 126/78; PULSE 55; RESP 18; O2SAT 96
[2019-09-28 14:00] LABS: Alanine Aminotransferase 23 IU/L (<50); Albumin 4.2 g/dL (3.5-5.0); Albumin Globulin Ratio 1.3 (1.0-2.8); Alkaline Phosphatase 68 U/L (38-126); Aspartate Aminotransferase 27 IU/L (17-59); Bilirubin Total 0.6 mg/dL (0.2-1.3); Blood Urea Nitrogen 24 mg/dL (9-20); Carbon Dioxide 23 mmol/L (22-32); Chloride 109 mmol/L (98-107); Estimated Glomerular Filt Rate > 60.0 mL/min (>60); Globulin 3.2 g/dL (1.7-4.1); Glucose 145 mg/dL (80-110); HEMOLYSIS < 15 (0-50); Potassium 3.9 mmol/L (3.4-5.1); Sodium 140 mmol/L (137-145); Total Protein 7.4 g/dL (6.3-8.2)
[2019-09-28 14:12] LABS: Troponin I < 0.012 ng/mL (0.01-0.034)
--- NOTE | 2019-09-28 14:45 | ED.DIZZY ---
HPI - Dizziness <IRIS Fernandez - Last Filed: 09/28/19 19:37> General Chief Complaint: Dizziness Stated Complaint: lightheaded today Time Seen by Provider: 09/28/19 13:08 Source: patient Mode of arrival: Ambulatory Limitations: no limitations History of Present Illness HPI Narrative: The patient is an ambulatory 63-year-old male marijuana smoker with history of acute cholecystitis with subsequent cholecystectomy who presents with a chief complaint of an episode of dizziness this morning. He states that went on for an hour, did not feel like he was spinning. Working looked up and felt lightheaded. He ate lunch to see if that would help and it did not. States he feels ?distant.He denies any history of cardiac issues, chest pain or shortness of breath. He denies any weakness or numbness or tingling. He states he has been having some word searching for the past year. He has not followed up with primary care provider recently. Related Data Home Medications Medication Instructions Recorded Confirmed potassium chloride PO DAILY 12/14/17 01/11/18 vitamin B complex PO 12/14/17 01/11/18 Previous Rx's Medication Instructions Recorded oxycodone-acetaminophen 5 mg-325 2 tab PO Q4-6H PRN #14 tab 01/05/18 mg tablet Allergies Allergy/AdvReac Type Severity Reaction Status Date / Time No Known Drug Allergies Allergy Verified 12/14/17 14:36 Review of Systems <IRIS Fernandez - Last Filed: 09/28/19 19:37> Review of Systems Narrative: GENERAL: Denies chills, fatigue, malaise, fever, sweats. HEENT: Denies sinus pain, ear pain, sore throat, difficulty swallowing, dizziness. RESPIRATORY: Denies dyspnea, cough, wheezing, hemoptysis, sputum. CARDIOVASCULAR: Denies chest pain, palpitations, orthopnea, edema, GASTROINTESTINAL: Denies nausea, vomiting, abdominal pain, diarrhea, constipation, melena. : Denies dysuria, frequency, incontinence, hematuria, urinary retention. MUSCULOSKELETAL: denies weakness, joint pain, or bony pain SKIN: Denies rash, skin lesions, or other NEUROLOGIC: See HPI PSYCHIATRIC: No concerning psychosocial issues. 12 point review of systems is negative except for those stated above Patient History <IRIS Fernandez - Last Filed: 09/28/19 19:37> Social History household members: none Smoking Status: Never smoker alcohol intake: former Smoking Status: Never smoker Substance Use Type: marijuana Exam <TIGRE Fernandez-GERRY - Last Filed: 09/28/19 19:37> Narrative Exam Narrative: GENERAL: This is a well-nourished, well-developed patient, in no acute distress HEAD: Atraumatic. Normocephalic. No temporal or scalp tenderness. EYES: Pupils equal round and reactive. Extraocular motions intact. No scleral icterus. No injection or drainage. ENT: Nose without bleeding, purulent drainage or septal hematoma. Throat without erythema, tonsillar hypertrophy or exudate. Uvula midline. Airway patent. NECK: Trachea midline. No JVD or lymphadenopathy. Supple, nontender, no meningeal signs. CARDIOVASCULAR: Regular rate and rhythm RESPIRATORY: Clear to auscultation. Breath sounds equal bilaterally. No wheezes, rales, or rhonchi. No cough. No increased respiratory effort. No accessory muscle use. GASTROINTESTINAL: Abdomen soft, non-tender, nondistended. No hepato-splenomegaly, or palpable masses. No guarding. EXTREMITIES: No clubbing, cyanosis, or edema. No joint tenderness, effusion, or edema noted. BACK: Nontender without deformity or crepitance. No flank tenderness. NEURO: AOx3. Follows commands. Strength is equal upper and lower extremities bilaterally. NIH is 0. SKIN: No rash or erythema on visible skin Initial Vital Signs Initial Vital Signs: Vital Signs Temperature 97.6 F 09/28/19 13:08 Pulse Rate 82 09/28/19 13:08 Respiratory Rate 16 09/28/19 13:08 Blood Pressure 132/87 09/28/19 13:08 Pulse Oximetry 97 09/28/19 13:08 <Madiha Castillo DO - Last Filed: 10/10/19 08:33> Initial Vital Signs Initial Vital Signs: Vital Signs Temperature 97.6 F 09/28/19 13:08 Pulse Rate 82 09/28/19 13:08 Respiratory Rate 16 09/28/19 13:08 Blood Pressure 132/87 09/28/19 13:08 Pulse Oximetry 97 09/28/19 13:08 Scores <NOAH FernandezP-BC - Last Filed: 09/28/19 19:37> GCS [place] coma scale eye opening: Spontaneous Zulema coma scale verbal response: Orientated [place] coma scale motor response: Obey commands [place] coma scale total score: 15 HEART Score Heart Score history: Slightly Suspicious Heart Score EKG: Normal Heart Score Age: 45-64 years old Heart Score risk factors: No known risk factors Heart Score troponin: < or = to normal limit Heart Score Total: 1 Course <Nedra ROM LorenzoBC - Last Filed: 09/28/19 19:37> Orders Ordered: Discontinued Medications Sodium Chloride (Normal Saline 0.9%) 1,000 mls @ 1,000 mls/hr IV BOLUS ONE Stop: 09/28/19 14:14 Last Infusion: 09/28/19 15:22 Dose: 0 mls/hr Documented by: Admin: 09/28/19 13:50 Dose: 1,000 mls/hr Documented by: ASHOK Sodium Chloride (Normal Saline 0.9%) 1,000 mls @ 1,000 mls/hr IV BOLUS ONE Stop: 09/28/19 16:37 Last Admin: 09/28/19 15:41 Dose: 1,000 mls/hr Documented by: MICHAEL Vital Signs Vital signs: Vital Signs - 8 hr 09/28/19 13:08 09/28/19 14:00 09/28/19 15:24 Temperature 97.6 F Pulse Rate 82 55 L 60 Pulse Rate [Orthostatic Lying] Pulse Rate [Orthostatic Sitting] Pulse Rate [Orthostatic Standing] Respiratory Rate 16 18 14 Blood Pressure 132/87 Blood Pressure [Orthostatic Lying] Blood Pressure [Orthostatic Sitting] Blood Pressure [Orthostatic Standing] Blood Pressure [Right Arm] 126/78 144/82 H Pulse Oximetry 97 96 96 09/28/19 16:44 09/28/19 16:54 09/28/19 17:50 Temperature Pulse Rate 60 70 Pulse Rate [Orthostatic Lying] 65 Pulse Rate [Orthostatic Sitting] 83 Pulse Rate [Orthostatic Standing] 76 Respiratory Rate 16 17 Blood Pressure Blood Pressure [Orthostatic Lying] 149/90 H Blood Pressure [Orthostatic Sitting] 159/98 H Blood Pressure [Orthostatic Standing] 157/92 H Blood Pressure [Right Arm] 152/85 H 141/62 H Pulse Oximetry 97 99 <Madiha Castillo DO - Last Filed: 10/10/19 08:33> Orders Ordered: Discontinued Medications Sodium Chloride (Normal Saline 0.9%) 1,000 mls @ 1,000 mls/hr IV BOLUS ONE Stop: 09/28/19 14:14 Last Infusion: 09/28/19 15:22 Dose: 0 mls/hr Documented by: Admin: 09/28/19 13:50 Dose: 1,000 mls/hr Documented by: ASHOK Sodium Chloride (Normal Saline 0.9%) 1,000 mls @ 1,000 mls/hr IV BOLUS ONE Stop: 09/28/19 16:37 Last Admin: 09/28/19 15:41 Dose: 1,000 mls/hr Documented by: MICHAEL Vital Signs Vital signs: Vital Signs - 8 hr 09/28/19 13:08 09/28/19 14:00 09/28/19 15:24 Temperature 97.6 F Pulse Rate 82 55 L 60 Pulse Rate [Orthostatic Lying] Pulse Rate [Orthostatic Sitting] Pulse Rate [Orthostatic Standing] Respiratory Rate 16 18 14 Blood Pressure 132/87 Blood Pressure [Orthostatic Lying] Blood Pressure [Orthostatic Sitting] Blood Pressure [Orthostatic Standing] Blood Pressure [Right Arm] 126/78 144/82 H Pulse Oximetry 97 96 96 09/28/19 16:44 09/28/19 16:54 09/28/19 17:50 Temperature Pulse Rate 60 70 Pulse Rate [Orthostatic Lying] 65 Pulse Rate [Orthostatic Sitting] 83 Pulse Rate [Orthostatic Standing] 76 Respiratory Rate 16 17 Blood Pressure Blood Pressure [Orthostatic Lying] 149/90 H Blood Pressure [Orthostatic Sitting] 159/98 H Blood Pressure [Orthostatic Standing] 157/92 H Blood Pressure [Right Arm] 152/85 H 141/62 H Pulse Oximetry 97 99 MDM - Dizziness <IRIS Fernandez - Last Filed: 09/28/19 19:37> Lab Data Result diagrams: 09/28/19 13:29 09/28/19 13:29 Labs: Lab Results 09/28/19 09/28/19 09/28/19 Range/Units 13:29 13:29 13:29 WBC 6.4 (4.5-11.0) X10^3/uL RBC 5.27 (4.5-5.9) X10^6/uL Hgb 14.8 (13.5-17.5) g/dL Hct 43.3 (41-53) % MCV 82.0 (80-100) fL MCH 28.1 (26-34) PG MCHC 34.2 (30-36) % RDW 14.8 (11.6-14.8) % Plt Count 181 (150-400) X10^3/uL Neut % (Auto) 75.1 H (50-75) % Lymph % (Auto) 17.1 L (25-40) % [place] % (Auto) 6.3 (3-14) % Eos % (Auto) 0.9 L (2-4) % Baso % (Auto) 0.6 (0-2) % Neut # (Auto) 4800 (9284-1762) /uL Lymph # (Auto) 1100 (9433-5789) /uL [place] # (Auto) 400 (0-900) /uL Eos # (Auto) 100 (0-450) /uL Baso # (Auto) 0 (0-100) /uL PT 12.2 (10.1-12.7) SECONDS INR 1.1 (0.9-1.3) Sodium 140 (137-145) mmol/L Potassium 3.9 (3.4-5.1) mmol/L Chloride 109 H (98-107) mmol/L Carbon Dioxide 23 (22-32) mmol/L BUN 24 H (9-20) mg/dL Creatinine 1.00 (0.66-1.25) mg/dL Estimated GFR > 60.0 (>60) mL/min BUN/Creatinine Ratio 24.0 H (6-22) Glucose 145 H (80-110) mg/dL Calcium 9.0 (8.4-10.2) mg/dL Total Bilirubin 0.6 (0.2-1.3) mg/dL AST 27 (17-59) IU/L ALT 23 (<50) IU/L Alkaline Phosphatase 68 (38-126) U/L Troponin I < 0.012 (0.01-0.034) ng/mL NT-Pro-B Natriuret Pep (<125) pg/mL Total Protein 7.4 (6.3-8.2) g/dL Albumin 4.2 (3.5-5.0) g/dL Globulin 3.2 (1.7-4.1) g/dL Albumin/Globulin Ratio 1.3 (1.0-2.8) 09/28/19 09/28/19 Range/Units 16:57 16:57 WBC (4.5-11.0) X10^3/uL RBC (4.5-5.9) X10^6/uL Hgb (13.5-17.5) g/dL Hct (41-53) % MCV (80-100) fL MCH (26-34) PG MCHC (30-36) % RDW (11.6-14.8) % Plt Count (150-400) X10^3/uL Neut % (Auto) (50-75) % Lymph % (Auto) (25-40) % [place] % (Auto) (3-14) % Eos % (Auto) (2-4) % Baso % (Auto) (0-2) % Neut # (Auto) (2663-4077) /uL Lymph # (Auto) (8193-8998) /uL [place] # (Auto) (0-900) /uL Eos # (Auto) (0-450) /uL Baso # (Auto) (0-100) /uL PT (10.1-12.7) SECONDS INR (0.9-1.3) Sodium (137-145) mmol/L Potassium (3.4-5.1) mmol/L Chloride (98-107) mmol/L Carbon Dioxide (22-32) mmol/L BUN (9-20) mg/dL Creatinine (0.66-1.25) mg/dL Estimated GFR (>60) mL/min BUN/Creatinine Ratio (6-22) Glucose (80-110) mg/dL Calcium (8.4-10.2) mg/dL Total Bilirubin (0.2-1.3) mg/dL AST (17-59) IU/L ALT (<50) IU/L Alkaline Phosphatase (38-126) U/L Troponin I < 0.012 (0.01-0.034) ng/mL NT-Pro-B Natriuret Pep 47 (<125) pg/mL Total Protein (6.3-8.2) g/dL Albumin (3.5-5.0) g/dL Globulin (1.7-4.1) g/dL Albumin/Globulin Ratio (1.0-2.8) Urine Dip Bedside Urine Glucose Negative Bedside Urine Bilirubin - Negative Bedside Urine Ketone - Negative Urine Specific Darby 1.020 Bedside Urine Occult Blood - Negative Bedside Urine pH 6.5 Bedside Urine Protein +/- 15 Bedside Urine Urobilinogen - Negative Bedside Urine Nitrite - Negative Bedside Urine Leukocytes - Negative Esterase Imaging Data CT scan - head: Radiologist's Impression: [address] [place], [place] [id number] CT Scan Report Signed Patient: Darnell Gilliam EMR#: [id number] : 1955cct:[id number] Age/Sex: 63 / MDate of Service: 09/28/19 Loc: ED Accession Number: [id number] Procedure: CT head/brain wo con Ordering Provider: Nedra Lorenzo- PROCEDURE: CT HEAD/BRAIN WO CON INDICATIONS: dizzy TECHNIQUE: Noncontrast 4.5 mm thick angled axial sections acquired from the foramen magnum to the vertex, with coronal and sagittal reformats. For radiation dose reduction, the following was used: automated exposure control, adjustment of mA and/or kV according to patient size. COMPARISON: None. FINDINGS: Image quality: Excellent. CSF spaces: Basal cisterns are patent. No extra-axial fluid collections. Ventricles are normal in size and shape. Brain: No midline shift. No intracranial masses or hemorrhage. Hall-white matter interface is normal. Skull and face: Calvarium and visualized facial bones are intact, without suspicious lesions. Sinuses: Visualized sinuses and mastoids are clear. IMPRESSION: Negative head CT. No acute intracranial hemorrhage. Dictated by: Geovanny Gamez M.D. on 09/28/2019 at 12:43 Approved by: Geovanny Gamez M.D. on 09/28/2019 at 12:44 Chest x-ray: Radiologist's Impression: [address] [address] XRay Report Signed Patient: Darnell Gilliam EMR#: [id number] : 7Acct:[id number] Age/Sex: 63 / MDate of Service: 09/28/19 Loc: ED Accession Number: [id number] Procedure: XR chest 1V Ordering Provider: Nedra Lorenzo PROCEDURE: XR CHEST 1V INDICATIONS: fatigue, dizzy TECHNIQUE: One view of the chest was acquired. COMPARISON: None. FINDINGS: Surgical changes and devices: None. Lungs and pleura: Mild opacity at the right lung base. Moderate right pleural effusion. No pneumothorax. Mediastinum: Mediastinal contours appear normal. Heart size is normal. Bones and chest wall: No suspicious bony lesions. Overlying soft tissues appear unremarkable. IMPRESSION: 1. Moderate right pleural effusion. 2. Mild opacity at the right lung base most likely represents atelectasis. Pneumonia or aspiration could have a similar appearance. Dictated by: Nuno Michaud M.D. on 09/28/2019 at 14:01 Approved by: Nuno Michaud M.D. on 09/28/2019 at 14:02 ECG Data Attestation: I personally reviewed and interpreted this ECG as follows: Interpretation: Sinus rhythm with sinus rhythm. Ventricular rate 69. P.r. interval 159. Viewed by Dr. Castillo MDM Narrative Medical decision making narrative: The patient is a 63-year-old male who presents with a vague complaint of dizziness for 1 hour earlier today at work. His initial troponin is negative, head CT is negative, NIH is 0, repeat troponin is also negative. This helps rule out acute stroke and coronary event. He is noted to have a pleural effusion though his breathing well oxygenating well. Discussed x-ray with Dr. Castillo. He feels much improved after some IV fluids, has normal orthostatics. I discussed at length the importance of following up with primary care provider, especially regarding his pleural effusion as this may represent an underlying issue. He has been without complaint throughout stay in the emergency department. Discussed at length coming back to the emergency department for any acute concerns such as acute chest pain, shortness of breath, concern of heart attack or stroke. Patient has no questions or concerns upon discharge and states understanding of return precautions as well as follow-up care. <Madiha Castillo, DO - Last Filed: 10/10/19 08:33> Lab Data Labs: Lab Results 09/28/19 09/28/19 09/28/19 Range/Units 13:29 13:29 13:29 WBC 6.4 (4.5-11.0) X10^3/uL RBC 5.27 (4.5-5.9) X10^6/uL Hgb 14.8 (13.5-17.5) g/dL Hct 43.3 (41-53) % MCV 82.0 (80-100) fL MCH 28.1 (26-34) PG MCHC 34.2 (30-36) % RDW 14.8 (11.6-14.8) % Plt Count 181 (150-400) X10^3/uL Neut % (Auto) 75.1 H (50-75) % Lymph % (Auto) 17.1 L (25-40) % [place] % (Auto) 6.3 (3-14) % Eos % (Auto) 0.9 L (2-4) % Baso % (Auto) 0.6 (0-2) % Neut # (Auto) 4800 (3332-6238) /uL Lymph # (Auto) 1100 (2554-1910) /uL [place] # (Auto) 400 (0-900) /uL Eos # (Auto) 100 (0-450) /uL Baso # (Auto) 0 (0-100) /uL PT 12.2 (10.1-12.7) SECONDS INR 1.1 (0.9-1.3) Sodium 140 (137-145) mmol/L Potassium 3.9 (3.4-5.1) mmol/L Chloride 109 H (98-107) mmol/L Carbon Dioxide 23 (22-32) mmol/L BUN 24 H (9-20) mg/dL Creatinine 1.00 (0.66-1.25) mg/dL Estimated GFR > 60.0 (>60) mL/min BUN/Creatinine Ratio 24.0 H (6-22) Glucose 145 H (80-110) mg/dL Calcium 9.0 (8.4-10.2) mg/dL Total Bilirubin 0.6 (0.2-1.3) mg/dL AST 27 (17-59) IU/L ALT 23 (<50) IU/L Alkaline Phosphatase 68 (38-126) U/L Troponin I < 0.012 (0.01-0.034) ng/mL NT-Pro-B Natriuret Pep (<125) pg/mL Total Protein 7.4 (6.3-8.2) g/dL Albumin 4.2 (3.5-5.0) g/dL Globulin 3.2 (1.7-4.1) g/dL Albumin/Globulin Ratio 1.3 (1.0-2.8) 09/28/19 09/28/19 Range/Units 16:57 16:57 WBC (4.5-11.0) X10^3/uL RBC (4.5-5.9) X10^6/uL Hgb (13.5-17.5) g/dL Hct (41-53) % MCV (80-100) fL MCH (26-34) PG MCHC (30-36) % RDW (11.6-14.8) % Plt Count (150-400) X10^3/uL Neut % (Auto) (50-75) % Lymph % (Auto) (25-40) % [place] % (Auto) (3-14) % Eos % (Auto) (2-4) % Baso % (Auto) (0-2) % Neut # (Auto) (4451-6736) /uL Lymph # (Auto) (7224-8206) /uL [place] # (Auto) (0-900) /uL Eos # (Auto) (0-450) /uL Baso # (Auto) (0-100) /uL PT (10.1-12.7) SECONDS INR (0.9-1.3) Sodium (137-145) mmol/L Potassium (3.4-5.1) mmol/L Chloride (98-107) mmol/L Carbon Dioxide (22-32) mmol/L BUN (9-20) mg/dL Creatinine (0.66-1.25) mg/dL Estimated GFR (>60) mL/min BUN/Creatinine Ratio (6-22) Glucose (80-110) mg/dL Calcium (8.4-10.2) mg/dL Total Bilirubin (0.2-1.3) mg/dL AST (17-59) IU/L ALT (<50) IU/L Alkaline Phosphatase (38-126) U/L Troponin I < 0.012 (0.01-0.034) ng/mL NT-Pro-B Natriuret Pep 47 (<125) pg/mL Total Protein (6.3-8.2) g/dL Albumin (3.5-5.0) g/dL Globulin (1.7-4.1) g/dL Albumin/Globulin Ratio (1.0-2.8) Urine Dip Bedside Urine Glucose Negative Bedside Urine Bilirubin - Negative Bedside Urine Ketone - Negative Urine Specific Darby 1.020 Bedside Urine Occult Blood - Negative Bedside Urine pH 6.5 Bedside Urine Protein +/- 15 Bedside Urine Urobilinogen - Negative Bedside Urine Nitrite - Negative Bedside Urine Leukocytes - Negative Esterase Discharge Plan Departure Patient Disposition: Home Clinical Impression: Dizziness, Pleural effusion Discharge Date/Time: 09/28/19 18:05 Instructions: DI for Dizziness-Nonvertigo, DI for Pleural Effusion Activity Restrictions/Additional Instructions: Thank you for trusting us with your care today As I discussed, your heart labs as well as head CT came back with no acute findings You feel improved after IV fluids I suggest follow up with primary care provider regarding the pleural effusion (the fluid around your lung) as we need to find out why that is happening I also suggest not using marijuana to see if that helps the dizziness Please follow-up with primary care provider in the next few days Please come back to emergency department for any acute concerns including chest pain, shortness of breath, concern of heart attack stroke etcetera Prescriptions: No Action potassium chloride PO DAILY RF: 0 vitamin B complex PO RF: 0 oxycodone-acetaminophen [Percocet] 5-325 mg tablet 2 tab PO Q4-6H PRN (Reason: painful procedure) Qty: 14 RF: 0 Referrals: Madeline Bell ARNP [Primary Care Provider] - Stand Alone Forms: Work Release Note
[2019-09-28 15:24] VITALS: BP 144/82; PULSE 60; RESP 14; O2SAT 96
[2019-09-28 16:44] VITALS: BP 152/85; PULSE 60; RESP 16; O2SAT 97
[2019-09-28 16:54] VITALS: BP 149/90; BP 157/92; BP 159/98; PULSE 65; PULSE 76; PULSE 83
[2019-09-28 17:36] LABS: NT-proBNP (BNP-Adult 18+) 47 pg/mL (<125)
[2019-09-28 17:39] LABS: Troponin I < 0.012 ng/mL (0.01-0.034)
[2019-09-28 17:50] VITALS: BP 141/62; PULSE 70; RESP 17; O2SAT 99
== END 2019-09-28 18:05 | disposition home or self-care (01) ==
PROVIDERS: Emergency Provider Nurse Practitioner Family; PCP Nurse Practitioner Family
DX: R42 Dizziness and giddiness (principal); J90 Pleural effusion, not elsewhere classified
CPT/HCPCS: 36415; 70450; 71045; 80053; 81003; 83880; 84484; 85025; 85610; 93005; 96360; 96361; 99285

== ENCOUNTER → 2019-10-17 15:25 | Outpatient (CLI) | payer BC, SELFPAY ==
[2018-01-03 14:09] VITALS: BMI 29.6
--- NOTE | 2019-10-17 15:28 | DI.CT.S_ITS ---
PROCEDURE: CT CHEST WO CON INDICATIONS: PLEURAL EFFUSION NOT ELSEWHERE CLASSIFIED TECHNIQUE: Noncontrast 5 mm thick sections acquired from the pulmonary apices to the posterior costophrenic angles. 1 mm lung window, 5 mm thick coronal and sagittal and 7 mm axial MIP reformats were then acquired. For radiation dose reduction, the following was used: automated exposure control, adjustment of mA and/or kV according to patient size. COMPARISON: Chest x-ray examination dated 610 1120 FINDINGS: Image quality: Excellent. Lungs and pleura: No acute air space opacities. No pneumothorax. Small to moderate right pleural effusion. Mild right basilar atelectasis versus pneumonia. Central and peripheral airways are patent and normal in caliber. Mediastinum: Heart size is normal. No pericardial effusion. No mediastinal adenopathy by size criteria. Thoracic aorta and central pulmonary arteries are normal in size. Esophagus is normal in caliber. Small hiatal hernia. Bones and chest wall: No suspicious bony lesions. No vertebral body compression fractures. No axillary or supraclavicular adenopathy by size criteria. Thyroid gland is within normal limits. Abdomen: Visualized upper abdominal solid organs and bowel loops appear normal in the absence of contrast. IMPRESSION: 1. Right pleural effusion. 2. Right basilar atelectasis versus pneumonia. 3. Small hiatal hernia. Dictated by: Neri Argueta M.D. on 10/17/2019 at 17:40 Approved by: Neri Argueta M.D. on 10/17/2019 at 17:44
== END ==
PROVIDERS: Referring Provider Internal Medicine; Visit Provider Internal Medicine
DX: J90 Pleural effusion, not elsewhere classified (principal); K44.9 Diaphragmatic hernia without obstruction or gangrene
CPT/HCPCS: 71250

== ENCOUNTER → 2019-11-18 14:18 | Outpatient (CLI) | payer BC, SELFPAY ==
[2018-01-03 14:09] VITALS: BMI 29.6
[2019-11-20 20:42] LABS: COVID19 Sendout Not Detected (Not Detect)
== END ==
PROVIDERS: Visit Provider Physician Assistant
DX: Z11.59 Encounter for screening for other viral diseases (principal)
CPT/HCPCS: 87635

== ENCOUNTER → 2019-11-21 14:54 | Outpatient (CLI) | payer BC, SELFPAY ==
[2018-01-03 14:09] VITALS: BMI 29.6
== END ==
PROVIDERS: PCP Internal Medicine; Referring Provider Internal Medicine; Visit Provider Internal Medicine
DX: R06.09 Other forms of dyspnea (principal)
CPT/HCPCS: 93017

== ENCOUNTER → 2019-11-23 15:42 | Outpatient (CLI) | payer BC, SELFPAY ==
[2018-01-03 14:09] VITALS: BMI 29.6
--- NOTE | 2019-11-23 | DI.ECHO.S_ITS ---
[facility]---------+ [facility] +---------+ : : [address] : : : : [id number] : : : : Phone: [phone] Echocardiogram Report + + :Name: JORGE LINDER Study Date: 11/23/2019 Height: 74 in : :[facility] Weight: 245 lb : : Gender: Male BSA: 2.4 m2 : :: 1955 Age: 64 yrs BP: 146/94 mmHg: :Reason For Study: DYSPNEA : :Ordering Physician: JOSE L, : :ARJUN Performed By: Kinza Hernandez : :Referring: ARJUN DOMINGO : + + Interpretation Summary The left ventricle is normal in size and wall thickness. The left ventricular ejection fraction is normal. There are no focal wall motion abnormalities. Diastolic parameters suggest probable normal left ventricular diastolic function and normal filling pressures. The right ventricle is normal in size and function. Pulmonary artery pressures cannot be estimated because of the lack of a measurable TR jet velocity but the IVC suggests a CVP of around 3 mmHg. No hemodynamically significant valvular abnormalities. Procedure: A two-dimensional transthoracic echocardiogram with color flow and Doppler was performed. The study quality was technically adequate. The apical views were difficult to obtain and are suboptimal in quality. The patient was in sinus rhythm with heart rates between 68-74 bpm during the exam. Left Ventricle: The left ventricle is normal in size and wall thickness. The ejection fraction is estimated to be 60-65%. The left ventricular ejection fraction is normal. There are no focal wall motion abnormalities. Diastolic parameters suggest probable normal left ventricular diastolic function and normal filling pressures. Right Ventricle: The right ventricle is normal in size and function. Atria: Left atrium is at upper limit of normal size,. Right atrial size is normal. There is no Doppler evidence for an interatrial shunt. Mitral Valve: The mitral valve is normal in structure and function. There is trace mitral regurgitation. Aortic Valve: The aortic valve is trileaflet. The aortic valve opens well. There is no aortic valve stenosis. No aortic regurgitation is present. Tricuspid Valve: The tricuspid valve is normal in structure and function. Pulmonary artery pressures cannot be estimated because of the lack of a measurable TR jet velocity but the IVC suggests a CVP of around 3 mmHg. There is trace tricuspid regurgitation. Pulmonic Valve: The pulmonic valve is not well seen, but is grossly normal. There is no pulmonic valvular regurgitation. Great Vessels: The aortic root is borderline dilated. The ascending aorta is mildly enlarged. The IVC is of normal diameter and collapses greater than 50% with a sniff. This suggests a low right atrial pressure of 3 mm Hg. Pericardium/ Pleura There is no pericardial effusion. There is no pleural effusion. MMode/2D Measurements & Calculations LVIDd: 5.0 cm LVOT diam: 2.4 cm LVIDs: 3.1 cm Ao root diam: 3.9 cm FS: 38.7 % asc Aorta Diam: 3.7 cm EPSS: 0.48 cm Ao Arch Diam (Prox Trans): 3.1 cm IVSd: 0.97 cm LVPWd: 1.2 cm LV varner. diameter/BSA (cm/m^2): 2.1 LV sys. diameter/BSA (cm/m^2): 1.3 LA A2 area: 26.7 cm2 RA long axis: 6.0 cm LA A4 area: 20.9 cm2 RA area: 23.4 cm2 LA length (vol): 5.7 cm RA vol: 77.7 ml LA vol: 83.7 ml RA : 32.8 ml/m2 LA vol index: 35.3 ml/m2 IVC diam: 1.6 cm RVD1 (basal): 4.2 cm TAPSE: 2.6 cm Doppler Measurements & Calculations Ao V2 max: 142.5 cm/sec LVOT Max Christopher: 114.9 cm/sec Ao V2 mean: 90.1 cm/sec LV V1 max P.3 mmHg Ao max P.1 mmHg LV V1 VTI: 24.0 cm Ao mean P.9 mmHg JAMES(I,D): 3.4 cm2 Ao V2 VTI: 32.6 cm JAMES(V,D): 3.8 cm2 sev ratio: 0.74 JAMES indexed to BSA (cm^2/m^2): 1.5 MV E max christopher: 72.8 cm/sec PA V2 max: 67.0 cm/sec MV A max christopher: 66.2 cm/sec PA V2 mean: 42.7 cm/sec MV E/A: 1.1 PA mean P.86 mmHg Med Peak E' Christopher: 10.0 cm/sec PA pr(Accel): 7.1 mmHg E/E' med: 7.2 Lat Peak E' Christopher: 16.7 cm/sec E/E' lat: 4.4 E/e' average: 5.8 MV dec time: 0.21 sec SV(LVOT): 112.4 ml Electronically signed by: Josh Napier M.D. on [place] Physician:11/23/2019 06:21 PM
== END ==
PROVIDERS: PCP Internal Medicine; Referring Provider Internal Medicine; Visit Provider Internal Medicine
DX: R06.09 Other forms of dyspnea (principal); I77.89 Other specified disorders of arteries and arterioles
CPT/HCPCS: 93306

== ENCOUNTER → 2020-03-12 14:10 | Outpatient (CLI) | payer BC, SELFPAY ==
[2018-01-03 14:09] VITALS: BMI 29.6
--- NOTE | 2020-03-12 | DI.RAD.S_ITS ---
PROCEDURE: XR CHEST 2V INDICATIONS: Recheck Pleural Effusion TECHNIQUE: 2 views of the chest were acquired. COMPARISON: [facility], CT, CT CHEST WO CON, 10/17/2019, 15:36. [facility], CR, XR CHEST 1V, 09/28/2019, 13:46. FINDINGS: Surgical changes and devices: None. Lungs and pleura: Lungs are abnormal with large lung volumes and flattening of the diaphragms on the lateral view to the degree that COPD is suspected. There is blunting of the costophrenic sulcus posteriorly on the lateral view, to mild degree.. No pleural effusions or pneumothorax. Mediastinum: Mediastinal contours are normal. Heart size is normal. Bones and chest wall: No suspicious bony abnormalities. Soft tissues appear unremarkable. IMPRESSION: The moderate-sized right-sided pleural effusion has resolved. Large lung volumes, suspect COPD. Blunting of the costophrenic sulcus on the right is present on the lateral view posteriorly. Dictated by: Jag Blackwell M.D. on 03/12/2020 at 14:53 Approved by: Jag Blackwell M.D. on 03/12/2020 at 14:56
== END ==
PROVIDERS: PCP Internal Medicine; Referring Provider Internal Medicine; Visit Provider Internal Medicine
DX: J90 Pleural effusion, not elsewhere classified (principal)
CPT/HCPCS: 71046

== ENCOUNTER → 2020-03-18 16:45 | Outpatient (CLI) | payer BC, SELFPAY ==
[2018-01-03 14:09] VITALS: BMI 29.6
--- NOTE | 2020-03-18 16:48 | DI.RAD.S_ITS ---
PROCEDURE: XR FINGER LT MIN 2V INDICATIONS: LUMP IN LEFT FINGER , digit 2 TECHNIQUE: PA view of the hand and two views of the index finger were obtained. COMPARISON: None. FINDINGS: Bones: No acute fracture or dislocation. No suspicious bony lesion is seen. Moderate degenerative changes are seen at the 1st carpometacarpal or the distal radial ulnar joint. Scattered mild degenerative changes are seen in the interphalangeal joints. Soft tissues: No suspicious soft tissue calcifications. There is mild soft tissue prominence throughout the index finger. IMPRESSION: No acute osseous abnormality. If the symptoms persist with conservative management, consider cross sectional imaging such as CT or MRI for further assessment. Dictated by: David Hamilton M.D. on 03/18/2020 at 16:34 Approved by: David Hamilton M.D. on 03/18/2020 at 16:36
== END ==
PROVIDERS: PCP Internal Medicine; Referring Provider Internal Medicine; Visit Provider Internal Medicine
DX: R22.32 Localized swelling, mass and lump, left upper limb (principal)
CPT/HCPCS: 73140